=== PATIENT | male | born 1985 | race American Indian/Alaskan Native ===

== ENCOUNTER 2016-10-19 23:03 | Emergency (ER) | payer MEDICAID, OTHER ==
[2016-10-19 23:12] VITALS: BP 127/82; PULSE 81; RESP 18; TEMP 97; O2SAT 98
[2016-10-19 23:40] LABS: BASO % 0.3 % (0.0-2.0); EOS # 0.2 K/uL (0.0-0.7); EOS % 1.3 % (0.0-4.0); HEMATOCRIT 44.8 % (35.0-51.0); LYMPH # 2.1 K/uL (1.0-4.3); LYMPH % 14.4 % (20.0-40.0); MEAN CELL VOLUME 79.2 fl (80.0-94.0); MEAN CORPUSCULAR HEMOGLOBIN 26.4 pg (27.0-31.0); MEAN CORPUSCULAR HGB CONC 33.3 g/dL (33.0-37.0); MEAN PLATELET VOLUME 8.4 fl (7.2-11.7); NEUT # 11.1 K/uL (1.8-7.0); RED CELL DISTRIBUTION WIDTH 13.8 % (11.5-14.5); WHITE BLOOD COUNT 14.4 K/uL (4.8-10.8)
[2016-10-19] MEDS ORDERED: Iohexol 240 (50 ml) PO ONE (23:43)
[2016-10-19] MEDS ORDERED: Iohexol 240 (50 ml) ONE (23:45)
[2016-10-19 23:51] LABS: ALB/GLOB RATIO 1.4 (1.0-2.1); ALCOHOL SERUM < 10 mg/dl (0-10); ALKALINE PHOSPHATASE 92 U/L (38-126); ALT/SGPT 49 U/L (21-72); AST/SGOT 45 U/L (17-59); BILIRUBIN,TOTAL 0.5 mg/dl (0.2-1.3); BLOOD UREA NITROGEN 19 mg/dl (9-20); CALCIUM 9.1 mg/dL (8.4-10.2); CARBON DIOXIDE 24 mmol/L (22-30); CHLORIDE 104 mmol/L (98-107); GFR AFRICAN-AMERICAN > 60; GLUCOSE,RANDOM 126 mg/dL (75-110); LIPASE 133 U/L (23-300); POTASSIUM 3.6 MMOL/L (3.6-5.0); SODIUM 142 mmol/l (132-148); TOTAL PROTEIN 6.8 G/DL (6.3-8.2)
[2016-10-20 00:04] LABS: RBC URINE 1 /hpf (0-3); URINE BACTERIA RARE (<OCC); URINE BILIRUBIN NEGATIVE (NEGATIVE); URINE BLOOD NEGATIVE (NEGATIVE); URINE COLOR YELLOW (YELLOW); URINE GLUCOSE (UA) NEG (Normal); URINE KETONE NEGATIVE (NEGATIVE); URINE LEUKOCYTE ESTERASE NEG Leu/uL (Negative); URINE PROTEIN NEGATIVE (NEGATIVE); URINE UROBILINOGEN 0.2-1.0 mg/dL (0.2-1.0); WBC URINE 1 /hpf (0-5)
--- NOTE | 2016-10-20 00:18 | ED PDOC ---
HPI: Abdomen Time Seen by Provider: 10/19/16 23:15 Chief Complaint (Nursing): Abdominal Pain Chief Complaint (Provider): abdominal pain History Per: Patient History/Exam Limitations: no limitations Onset/Duration Of Symptoms: Days (1) Outside of [place] travel?: No Current Symptoms Are (Timing): Gone Now Additional Complaint(s): 31yo male with PMHx including back problems presents to the ED with c/o abdominal pain x 1 day described as discomfort. No associated n/v/d, fever, changes in appetite. Pain is intermittent and 6/10 at worst. At the moment, patient has no pain. Past Medical History Reviewed: Historical Data, Nursing Documentation, Vital Signs Vital Signs: Last Vital Signs Temp 97 F L 10/19/16 23:09 Pulse 81 10/19/16 23:09 Resp 18 10/19/16 23:09 BP 127/82 10/19/16 23:09 Pulse Ox 98 10/20/16 00:21 - Medical History PMH: Back Problems (x5 years chronic pain) - Surgical History Surgical History: No Surg Hx - Family History Family History: States: No Known Family Hx - Social History Current smoker - smoking cessation education provided: Yes (half pack per day ) Alcohol: Occasional Drugs: Denies - Home Medications Home Medications: Ambulatory Orders Medication Instructions Recorded Dicyclomine [Bentyl] 20 mg PO Q12 PRN #20 tab 10/20/16 - Allergies Allergies/Adverse Reactions: Allergies Allergy/AdvReac Type Severity Reaction Status Date / Time No Known Allergies Allergy Verified 05/30/16 13:43 Review of Systems ROS Statement: Except As Marked, All Systems Reviewed And Found Negative Constitutional: Positive for: Other (no changes in appetite ). Negative for: Fever Gastrointestinal: Positive for: Abdominal Pain. Negative for: Nausea, Vomiting , Diarrhea Physical Exam - Reviewed Nursing Documentation Reviewed: Yes Vital Signs Reviewed: Yes - Physical Exam Appears: Positive for: Well, No Acute Distress Head Exam: Positive for: ATRAUMATIC, NORMAL INSPECTION, NORMOCEPHALIC Skin: Positive for: Normal Color, Warm, Dry Eye Exam: Positive for: Normal appearance, EOMI, PERRL ENT: Positive for: Normal ENT Inspection Neck: Positive for: Normal, Painless ROM, Supple Cardiovascular/Chest: Positive for: Regular Rate, Rhythm. Negative for: Murmur , Tachycardia Respiratory: Positive for: Normal Breath Sounds. Negative for: Wheezing, Respiratory Distress Gastrointestinal/Abdominal: Positive for: Normal Exam, Bowel Sounds, Soft. Negative for: Tenderness Back: Positive for: Normal Inspection. Negative for: L CVA Tenderness, R CVA Tenderness Extremity: Positive for: Normal ROM. Negative for: Deformity, Swelling Neurologic/Psych: Positive for: Alert, Oriented. Negative for: Motor/Sensory Deficits - Laboratory Results Result Diagrams: 10/19/16 23:22 10/19/16 23:22 - ECG O2 Sat by Pulse Oximetry: 98 Pulse Ox Interpretation: Normal (RA) Medical Decision Making Medical Decision Makin: Impression: 31yo male w/ abdominal pain Plan: Patient declines pain medications. Labs EKG reassess 2343: Labs reviewed, patient has elevated WBC count. CT A/P ordered. 0149: Patient refused CT and further testing and monitoring in the ED. Patient wishes to sign out AMA. This patient is choosing to leave against medical advice. The EP has personally explained to the pt that choosing to do so may result in permanent bodily harm or . The EP discussed at great length that without further evaluation and monitoring there may be unforeseen circumstances and/or deterioration causing permanent bodily harm or as a result of their choice. The pt verbalized these risks back to the physician in laymans terms. The pt is alert , oriented, and shows the mental capacity to make clear decisions regarding the pts health care at this time. The pt continues to wish to leave against medical advice. In light of the pts decision to leave AMA, follow-up has been arranged and the pt is aware of the importance of following up as instructed. The pt has been advised that they should return to the ED immediately if they change their mind at any time, or if thier condition begins to change or worsen in any way. Dx: abdominal pain stable AMA Scribe Attestation: Documented by Shannan Jin acting as a scribe for Salvador Gaming MD. Provider Scribe Attestation: All medical record entries made by the Scribe were at my direction and personally dictated by me. I have reviewed the chart and agree that the record accurately reflects my personal performance of the history, physical exam, medical decision making, and the department course for this patient. I have also personally directed, reviewed, and agree with the discharge instructions and disposition. Disposition - Clinical Impression Clinical Impression: Abdominal pain - Patient ED Disposition Is Patient to be Admitted: No - Disposition Disposition: Against Medical Advice Disposition Time: 01:49 Condition: STABLE Prescriptions: Dicyclomine [Bentyl] 20 mg PO Q12 PRN #20 tab PRN Reason: abdominal pain Instructions: Abdominal Pain (ED)
[2016-10-20] MEDS ORDERED: Iohexol 300 100 ML IJ ONE (01:20)
[2016-10-20] MEDS ORDERED: Sodium Chloride 0.9% 50 ML IV ONE (01:20)
--- NOTE | 2016-10-20 19:19 | CARD ---
APPROVED REPORT EKG Measurement Heart [id number] <Conclusion> Normal sinus rhythm Minimal voltage criteria for LVH, may be normal variant ST elevation, consider early repolarization, pericarditis, or injury Abnormal ECG
== END 2016-10-20 01:57 | disposition left against medical advice (07) ==
LOC: H.ER 23:03
DX: R10.9 Unspecified abdominal pain (principal); R11.2 Nausea with vomiting, unspecified; R19.7 Diarrhea, unspecified; D72.829 Elevated white blood cell count, unspecified; F17.210 Nicotine dependence, cigarettes, uncomplicated

== ENCOUNTER 2017-06-21 03:27 | Emergency (ER) | payer OTHER ==
[2017-06-21 03:55] VITALS: BP 134/67; PULSE 96; RESP 16; TEMP 98.2; O2SAT 97
[2017-06-21] MEDS ORDERED: Naproxen 500 MG TAB PO ONE (04:07)
--- NOTE | 2017-06-21 04:11 | ED PDOC ---
HPI: Back Time Seen by Provider: 06/21/17 03:39 Chief Complaint (Nursing): Back Pain Chief Complaint (Provider): Back Pain History Per: Patient History/Exam Limitations: no limitations Onset/Duration Of Symptoms: Worse Since (worsened today), Other (x4-5 years) Current Symptoms Are (Timing): Still Present Associated Symptoms: None Additional Complaint(s): 32 year old male presents to ED with complaints of lower back pain and right ankle pain and has no past medical history. Patient notes that he has had atraumatic, non-radiating bilateral lower back pain x4-5 years (left-side worse than right-side). States that back pain was aggravated earlier today after shoveling snow. Patient also notes having atraumatic right ankle pain x4 months with a continuous "clicking" sensation while walking. Confirms that previous XRs have been negative. (-) incontinence, fever, hematuria, dysuria, abdominal pain, saddle paresthesias, calf pain, or numbness/tingling. PCP: None Past Medical History Reviewed: Historical Data, Nursing Documentation, Vital Signs Vital Signs: Last Vital Signs Temp 98.2 F 06/21/17 03:53 Pulse 96 H 06/21/17 03:53 Resp 16 06/21/17 03:53 BP 134/67 06/21/17 03:53 Pulse Ox 97 06/21/17 03:53 - Medical History PMH: Back Problems (x5 years chronic pain) - Family History Family History: States: Unknown Family Hx - Social History Current smoker - smoking cessation education provided: Yes (heavy) Ex-Smoker (has not smoked in the last 12 months): No - Home Medications Home Medications: Ambulatory Orders Medication Instructions Recorded Dicyclomine [Bentyl] 20 mg PO Q12 PRN #20 tab 10/20/16 Cyclobenzaprine [Cyclobenzaprine 10 mg PO Q8 PRN #14 tab 06/21/17 HCl] Naproxen [Naprosyn] 500 mg PO BID PRN #14 tab 06/21/17 - Allergies Allergies/Adverse Reactions: Allergies Allergy/AdvReac Type Severity Reaction Status Date / Time No Known Allergies Allergy Verified 05/30/16 13:43 Review of Systems ROS Statement: Except As Marked, All Systems Reviewed And Found Negative Constitutional: Negative for: Fever Gastrointestinal: Negative for: Abdominal Pain Genitourinary Male: Negative for: Dysuria, Incontinence, Hematuria Musculoskeletal: Positive for: Back Pain, Foot Pain ((+) right ankle pain). Negative for: Leg Pain ((-) calf pain) Neurological: Negative for: Numbness, Other ((-) saddle paresthesias) Physical Exam - Reviewed Nursing Documentation Reviewed: Yes Vital Signs Reviewed: Yes - Physical Exam Appears: Positive for: Non-toxic, No Acute Distress Skin: Positive for: Normal Color, Warm, Dry Cardiovascular/Chest: Positive for: Tachycardia Respiratory: Positive for: Normal Breath Sounds. Negative for: Respiratory Distress Pulses-Dorsalis Pedis (L): 2+ Pulses-Dorsalis Pedis (R): 2+ Gastrointestinal/Abdominal: Positive for: Soft. Negative for: Tenderness Back: Positive for: Muscle Spasm (left sided muscle spasm). Negative for: Normal Inspection, L CVA Tenderness, R CVA Tenderness, Vertebral Tenderness Extremity: Positive for: Capillary Refill (<2 seconds). Negative for: Tenderness, Calf Tenderness, Deformity, Swelling, Other ((-) warmth, erythema, break in skin integrity to right ankle) Neurologic/Psych: Positive for: Alert, Oriented - ECG O2 Sat by Pulse Oximetry: 97 (RA) Pulse Ox Interpretation: Normal Medical Decision Making Medical Decision Makin Initial impression: ankle pain, back pain Initial plan: * Flexeril 10mg PO * Naproxen 500mg PO Scribe Attestation: Documented by Annamaria Bray acting as a scribe for Lenin Fang PA-C. MD Scribe Attestation: All medical record entries made by the Scribe were at my direction and personally dictated by me. I have reviewed the chart and agree that the record accurately reflects my personal performance of the history, physical exam, medical decision making, and the department course for this patient. I have also personally directed, reviewed, and agree with the discharge instructions and disposition. Disposition - Clinical Impression Clinical Impression: Low back pain, Ankle pain - Patient ED Disposition Is Patient to be Admitted: No - Disposition Referrals: [facility] [Outside] Podiatry Clinic [Outside] Disposition Time: 04:30 Condition: STABLE Additional Instructions: Follow up with podiatry clinic and [facility] for further evaluation. Return to ED immediately for any concerns or questions. Prescriptions: Cyclobenzaprine [Cyclobenzaprine HCl] 10 mg PO Q8 PRN #14 tab PRN Reason: Muscle Spasm Naproxen [Naprosyn] 500 mg PO BID PRN #14 tab PRN Reason: Pain Instructions: Acute Low Back Pain (ED), Arthralgia (ED) Forms: [employer] (Azeri)
== END 2017-06-21 05:48 | disposition home or self-care (01) ==
LOC: H.ER 03:27
DX: G89.29 Other chronic pain (principal)

== ENCOUNTER 2017-11-17 02:44 | Emergency (ER) | payer OTHER ==
[2017-11-17 04:47] VITALS: BP 124/71; PULSE 70; RESP 14; TEMP 97; O2SAT 97
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
== END 2017-11-17 04:40 | disposition home or self-care (01) ==
LOC: H.ER 02:44
DX: M54.9 Dorsalgia, unspecified (principal); M25.9 Joint disorder, unspecified; G89.29 Other chronic pain

== ENCOUNTER 2018-05-02 09:42 | Emergency (ER) | payer OTHER ==
[2018-05-02 09:50] VITALS: BMI 19.6
[2018-05-02 09:51] VITALS: BP 159/79; PULSE 97; RESP 20; TEMP 98; O2SAT 100
[2018-05-02] MEDS ORDERED: Lidocaine 1% Inj (20ml) IJ ONE (10:05)
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
== END 2018-05-02 10:55 | disposition home or self-care (01) ==
LOC: H.ER 09:42
DX: S61.411A Laceration without foreign body of right hand, initial encounter (principal); W25.XXXA Contact with sharp glass, initial encounter; Y92.89 Other specified places as the place of occurrence of the external cause

== ENCOUNTER 2018-10-22 20:07 | Emergency (ER) | payer OTHER ==
[2018-10-22 20:07] VITALS: BMI 19.6
[2018-10-22 21:06] VITALS: BP 113/71; PULSE 73; RESP 16; TEMP 98.7; O2SAT 98
[2018-10-22] MEDS ORDERED: Lidocaine 1% w Epi 1:100,000 Inj ONE (21:39)
[2018-10-22] MEDS ORDERED: Lidocaine 2% w Epi 1:100,000 Inj IJ ONE ×2 (21:42→22:22)
[2018-10-22] MEDS ORDERED: Tdap Vaccine 0.5 ml Vial (10-64 yrs) IM ONE ×2 (21:42→22:22)
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
[2018-10-22] MEDS ORDERED: Naproxen 500 MG TAB PO STA (21:53)
[2018-10-22] MEDS ORDERED: Lidocaine 1% w Epi 1:100,000 Inj IJ ONE (22:26)
== END 2018-10-22 22:50 | disposition home or self-care (01) ==
LOC: H.ER 20:07
DX: S01.511A Laceration without foreign body of lip, initial encounter (principal); S01.512A Laceration without foreign body of oral cavity, initial encounter; S39.012A Strain of muscle, fascia and tendon of lower back, initial encounter; Y04.0XXA Assault by unarmed brawl or fight, initial encounter; Y92.89 Other specified places as the place of occurrence of the external cause